=== PATIENT | male | born 1975 | race Two or more races ===

== ENCOUNTER 2018-12-20 05:30 | Day surgery (SDC) | payer OTHER ==
[~2018-12-20 05:30] MED LIST: JANUVIA PO; LOSAR PO
== END 2018-12-20 11:10 | disposition home or self-care (01) ==
LOC: CIR.AMB 05:30
DX: K80.10 Calculus of gallbladder with chronic cholecystitis without obstruction (principal)

== ENCOUNTER 2021-04-30 08:05 | Outpatient (CLI) | payer OTHER | END 2021-04-30 08:16 | disposition home or self-care (01) | LOC: RX STUDY 08:05 | PROVIDERS: ATTEND Internal Medicine Gastroenterology | DX: R10.84 Generalized abdominal pain (principal); K22.8 Other specified diseases of esophagus ==

== ENCOUNTER 2021-08-17 19:38 | Emergency (ER) | payer OTHER ==
[~2021-08-17] VITALS: Ht 180.3 cm; Wt 104.3 kg
[2021-08-17] MEDS ORDERED: ADVIL (20:23)
== END 2021-08-18 00:30 | disposition home or self-care (01) ==
LOC: ER 19:38
DX: E11.69 Type 2 diabetes mellitus with other specified complication (principal)

== ENCOUNTER 2022-03-11 09:52 | Outpatient (CLI) | payer OTHER ==
[~2022-03-11 09:52] MED LIST changes: +ADVIL
== END 2022-03-11 09:55 | disposition home or self-care (01) ==
LOC: SONOGRAMA 09:52
PROVIDERS: ATTEND Specialist
DX: R74.01 Elevation of levels of liver transaminase levels (principal)

== ENCOUNTER 2023-02-21 21:02 | Emergency (ER) | payer OTHER ==
[~2023-02-21] VITALS: Ht 180.3 cm; Wt 104.3 kg
== END 2023-02-21 23:55 | disposition home or self-care (01) ==
LOC: ER 21:02
DX: R73.09 Other abnormal glucose (principal); R73.9 Hyperglycemia, unspecified